=== PATIENT | female | born 1990 | race Caucasian/White ===

== ENCOUNTER 2024-05-14 10:47 | Outpatient (CLI) | payer BC, SELFPAY ==
--- NOTE | ~2024-05-14 | XR_ITS ---
EXAMINATION: XR hysterosalpingogram DATE: 05/14/2024 12:52 INDICATION: Female infertility. TECHNIQUE: Fluoroscopy was performed by the radiologist during contrast infusion into the endometrial cavity of the uterus by the primary physician. Fluoroscopy exposure time was 0.3 minutes. The total number of images was 5. FINDINGS: There is a filling defect in the left uterine horn. The fallopian tubes are normal in calib er. There is normal free intraperitoneal spillage of contrast on either side. IMPRESSION: 1. Normal fallopian tubes. 2. Filling defect in the left uterine horn, which may be a polyp or synechia. Reviewed, dictated and finalized at location A. [facility]
[2024-05-14 12:15] LABS: Beta HCG Quantitative < 2.39 mIU/ML
--- NOTE | 2024-05-17 08:30 | W.PM.PROC2 ---
Procedure Note - Detailed Date of Procedure 05/17/24 Pre-op Diagnosis Female infertility, unspecified Post-op Diagnosis Same Procedure Performed Hysterosalpingogram Surgeon Maciel Tim MD Anesthesia None Indications unexplained infertility Findings normal hysterosalpingogram Description of Procedure the patient was placed on the fluoroscopy table. A speculum was placed in the vagina. Cervix was grasped with a tenaculum. The catheter was placed the uterine cavity and the bulb was inflated. The speculum was removed with the angiocath still placed in the intrauterine cavity. Dye was then removed. The catheter. Fluoroscopic images obtained this process. Patient experienced some moderate to severe discomfort. The balloon of the catheter was deflated and the catheter was removed while the images were being obtained. The procedure was terminated. Patient tolerated the procedure well. There were no complications. Estimated Blood Loss 0 Complications No immediate complications Condition Stable Disposition Other
== END 2024-05-14 10:48 | disposition home or self-care (01) ==
PROVIDERS: Visit Provider Obstetrics & Gynecology
DX: N97.9 Female infertility, unspecified (principal); Z13.9 Encounter for screening, unspecified
CPT/HCPCS: 36415; 58340; 74740; 84702; Q9966